=== PATIENT | male | born 1955 | race Caucasian/White ===

== ENCOUNTER 2017-11-05 21:37 | Observation (INO) ==
[2017-11-05 22:10] LABS: Basophils # 0.1 K/mcL (0.0-0.2); Basophils % 0.5 %; Eosinophils # 1.1 K/mcL (0.0-0.6); Eosinophils % 7.5 %; Hematocrit 41.8 % (37.5-50.1); Hemoglobin 13.4 g/dL (12.9-16.9); Immature Granulocytes % 0.3 % (0-4); Lymphocytes # 5.2 K/mcL (0.6-4.6); Lymphocytes % 34.5 %; Mean Corpuscular HGB Conc 32.1 g/dL (31.6-35.5); Mean Corpuscular Hemoglobin 27.6 pg (28.0-33.3); Mean Platelet Volume 10.2 fL (9.4-12.4); Monocytes # 1.1 K/mcL (0.0-1.3); Monocytes % 7.2 %; Neutrophils # 7.5 K/mcL (1.6-8.9); Platelet Count 450 K/mcL (140-400); Red Blood Count 4.86 M/mcL (4.19-5.50); Red Cell Distribution Width 15.3 % (11.5-14.5)
--- NOTE | 2017-11-05 22:10 | Emergency Department Note ---
Disposition Clinical Impression: Exertional dyspnea Chest pain Qualifiers: Chest pain type: unspecified Qualified Code(s): R07.9 - Chest pain, unspecified Disposition: Admitted As Inpatient Condition: Fair Time of Disposition: 00:42 Chest Pain HPI - General Chief Complaint: ED Chest Pain Stated Complaint: chest pain, SOB Time Seen by Provider: 11/05/17 21:46 Source: patient Limitations: no limitations Vital Signs Reviewed: Yes Nursing Notes Reviewed: Yes - History of Present Illness HPI Narrative: Patient is a 61-year-old male who presents to [facility] ED with a chief complaint of chest pain and difficulty breathing. States he has had worsening difficulty breathing with exertion for the last 2 weeks. He has also had chest pressure that comes on intermittently. Has a history of reflux but states this has not improved with his reflux medications. Denies any nausea , vomiting, fever or chills. Patient is on 2 L of oxygen when needed at home as well as CPAP machine at night which he is intermittently compliant with. No recent cough or cold. Past medical history significant for CAD with 3 stents. His last catheterization was several years ago and his last stress test was over 6 months ago. Pt complaint: chest pain Onset (ago): day(s) (2) Duration: intermittent Onset: during exertion Pain Location: substernal Severity: mild Severity scale (1-10): 0 Quality: heaviness Pain Radiation: none Improves with: nothing Worsens with: exertion Associated symptoms: Reports: dyspnea. Denies: nausea, vomiting, fever, cough Treatments prior to arrival chest pain: aspirin - Related Data Home Medications Medication Instructions Recorded Confirmed Atorvastatin [Lipitor] 80 mg PO DAILY 07/19/15 11/05/17 Clopidogrel [Plavix] 75 mg PO DAILY 07/19/15 11/05/17 Cyclobenzaprine [Flexeril] 10 mg PO TID PRN 07/19/15 11/05/17 Furosemide [Lasix] 40 mg PO DAILY 07/19/15 11/05/17 Glimepiride [Amaryl] 1 mg PO BID 07/19/15 11/05/17 Losartan Potassium [Cozaar] 50 mg PO DAILY 07/19/15 11/05/17 Metformin HCl [Glucophage] 1,000 mg PO BIDWM 07/19/15 11/05/17 NIFEdipine [Nifedical Xl] 30 mg PO DAILY 07/19/15 11/05/17 Nitroglycerin 0.4 mg SL Q5MIN 07/19/15 11/05/17 Potassium Chloride [Klor-Con 10 meq PO BID 07/19/15 11/05/17 Sprinkle] Pregabalin [Lyrica] 150 mg PO TID 07/19/15 11/05/17 Ferrous Sulfate [Iron] 325 mg PO DAILY 11/05/17 11/05/17 Lansoprazole [Prevacid] 30 mg PO DAILY 11/05/17 11/05/17 Lisinopril 2.5 mg PO DAILY 11/05/17 11/05/17 Allergies Allergy/AdvReac Type Severity Reaction Status Date / Time No Known Allergies Allergy Verified 07/28/17 09:11 All systems ED: reviewed and negative except as stated. Chest Pain PMH - Past Medical History Medical history: Reports: coronary artery disease, diabetes, GERD, hyperlipidemia, hypertension Surgical history: Reports: appendectomy, other Psychiatric history: Reports: no psych history - Social History Smoking Status: Former smoker Alcohol use: Reports: heavy Drug use: Reports: none Physical Exam - General Limitations: no limitations General appearance: alert, in no apparent distress - Head Head exam: atraumatic, normocephalic, normal inspection - Eye Eye exam: Present: normal appearance, EOMI - ENT ENT exam: normal exam, normal oropharynx, mucous membranes moist - Neck Neck exam: Present: normal inspection, full ROM, trachea midline - Chest Chest inspection: Present: normal inspection, symmetric chest wall rise, tenderness (sharp with palpation) - Respiratory Respiratory exam: Present: normal lung sounds bilaterally - Cardiovascular Cardiovascular exam: Present: regular rate, normal rhythm, normal heart sounds - Abdominal Exam Abdominal exam: Present: soft, Non-Tender. Absent: tenderness, distention, guarding, rebound, rigidity - Extremities Exam Extremities exam: Present: normal inspection, full ROM. Absent: tenderness, pedal edema - Back Exam Back exam: Present: normal inspection, full ROM. Absent: tenderness - Neurological Exam Neurological exam: Present: alert, oriented X3 - Psychiatric Psychiatric exam: Present: normal affect, normal mood - Skin Skin exam: Present: warm, dry, intact, normal color Course Course Narrative: Patient seen and examined. Chest pain and exertional dyspnea. Cardiopulmonary workup initiated. Patient already took a full dose aspirin today. Asymptomatic at this time. - Reevaluation(s) Reevaluation #1: Labwork, imaging unremarkable. I discussed my concern for possible unstable angina. Recommend admission for workup for ACS. I discussed with the hospitalist who has accepted patient for admission. Time: 00:41 Vital Signs Temperature 97.8 F 11/05/17 21:38 Pulse Rate 76 11/05/17 21:38 Respiratory Rate 18 11/05/17 21:38 Blood Pressure 135/85 11/05/17 21:38 O2 Sat by Pulse Oximetry 98 11/05/17 21:38 Temperature 97.6 F 11/06/17 01:12 Pulse Rate 67 11/06/17 01:12 Respiratory Rate 15 11/06/17 01:12 Blood Pressure 132/85 11/06/17 01:12 O2 Sat by Pulse Oximetry 98 11/06/17 01:12 Oxygen Delivery Oxygen Delivery Room Air Chest Pain - Medical Records Medical records reviewed: Yes I reviewed the patient's medical records. - Lab Data Lab results reviewed: Yes I reviewed the patient's lab results. Result diagrams: 11/05/17 21:52 11/05/17 21:52 Lab Results 11/05/17 11/05/17 11/05/17 Range/Units 21:52 21:52 21:57 WBC 14.9 H (4.3-11.1) K/mcL RBC 4.86 (4.19-5.50) M/mcL Hgb 13.4 (12.9-16.9) g/dL Hct 41.8 (37.5-50.1) % MCV 86.0 (83.0-100.0) fL MCH 27.6 L (28.0-33.3) pg MCHC 32.1 (31.6-35.5) g/dL RDW 15.3 H (11.5-14.5) % Plt Count 450 H (140-400) K/mcL MPV 10.2 (9.4-12.4) fL Immature Gran % 0.3 (0-4) % Seg Neutrophils % 50.0 % Lymphocytes % 34.5 % Monocytes % 7.2 % Eosinophils % 7.5 % Basophils % 0.5 % Neutrophils # 7.5 (1.6-8.9) K/mcL Lymphocytes # 5.2 H (0.6-4.6) K/mcL Monocytes # 1.1 (0.0-1.3) K/mcL Eosinophils # 1.1 H (0.0-0.6) K/mcL Basophils # 0.1 (0.0-0.2) K/mcL VBG pH (7.32-7.42) pH Units VBG pCO2 (41-51) mmHg VBG pO2 (25-50) mmHg VBG HCO3 (21-27) mEq/L Sodium 140 (136-145) mEq/L Potassium 4.1 (3.5-5.1) mEq/L Chloride 105 (98-107) mEq/L Carbon Dioxide 25 (23-29) mEq/L BUN 17 (8-23) mg/dL Creatinine 1.62 H (0.70-1.30) mg/dL Est GFR ( Amer) 53 L (> 60) Est GFR (Non-Af Amer) 43 L (> 60) BUN/Creatinine Ratio 10 (6-26) Glucose 133 H (70-105) mg/dL Calculated Osmolality 293 (280-300) Calcium 9.0 (8.6-10.3) mg/dL Troponin I < 0.03 (< 0.04) ng/mL B-Natriuretic Peptide 33 (Less than 100) pg/mL 11/05/17 Range/Units 22:47 WBC (4.3-11.1) K/mcL RBC (4.19-5.50) M/mcL Hgb (12.9-16.9) g/dL Hct (37.5-50.1) % MCV (83.0-100.0) fL MCH (28.0-33.3) pg MCHC (31.6-35.5) g/dL RDW (11.5-14.5) % Plt Count (140-400) K/mcL MPV (9.4-12.4) fL Immature Gran % (0-4) % Seg Neutrophils % % Lymphocytes % % Monocytes % % Eosinophils % % Basophils % % Neutrophils # (1.6-8.9) K/mcL Lymphocytes # (0.6-4.6) K/mcL Monocytes # (0.0-1.3) K/mcL Eosinophils # (0.0-0.6) K/mcL Basophils # (0.0-0.2) K/mcL VBG pH 7.35 (7.32-7.42) pH Units VBG pCO2 51 (41-51) mmHg VBG pO2 44 (25-50) mmHg VBG HCO3 28 H (21-27) mEq/L Sodium (136-145) mEq/L Potassium (3.5-5.1) mEq/L Chloride (98-107) mEq/L Carbon Dioxide (23-29) mEq/L BUN (8-23) mg/dL Creatinine (0.70-1.30) mg/dL Est GFR ( Amer) (> 60) Est GFR (Non-Af Amer) (> 60) BUN/Creatinine Ratio (6-26) Glucose (70-105) mg/dL Calculated Osmolality (280-300) Calcium (8.6-10.3) mg/dL Troponin I (< 0.04) ng/mL B-Natriuretic Peptide (Less than 100) pg/mL - Radiology Data Radiology results reviewed: Yes I reviewed the patient's radiology results. Chest X-Ray 11/05/17 21:57 IMPRESSION: Unchanged appearance of the chest without acute airspace disease identified. D/ / Agapito Pollack / Agapito Pollack Interpreting Provider: Agapito Pollack - EKG Data EKG attestation: Yes I reviewed and interpreted this EKG. EKG results narrative: EKG done at 2147 shows normal sinus rhythm with a rate of [address] elevation or depression. Normal axis. Poor wandering baseline EKG. Appears unchanged from prior EKG done 10/26/2014. Heart Score - Score History: Moderately Suspicious EKG: Normal Age: 45-65 Risk Factors: Equal/Greater than 3 risk factor or history of atherosclerotic disease Troponin: Less than normal limit HEART Score Total: 4
[2017-11-05 22:32] LABS: BUN/Creatinine Ratio 10 (6-26); Blood Urea Nitrogen 17 mg/dL (8-23); Carbon Dioxide 25 mEq/L (23-29); Chloride 105 mEq/L (98-107); Glucose 133 mg/dL (70-105); Osmolality,Calculated 293 (280-300); Potassium 4.1 mEq/L (3.5-5.1); Sodium 140 mEq/L (136-145); eGFR For African Americans 53 (> 60); eGFR For Non-African Americans 43 (> 60)
[2017-11-05 22:34] LABS: Troponin I < 0.03 ng/mL (< 0.04)
[2017-11-05 22:50] LABS: VBG HCO3 28 mEq/L (21-27); VBG PCO2 51 mmHg (41-51); VBG PH 7.35 pH Units (7.32-7.42); VBG PO2 44 mmHg (25-50)
--- NOTE | 2017-11-05 23:44 | Emergency Department Note ---
Disposition Clinical Impression: Exertional dyspnea Chest pain Qualifiers: Chest pain type: unspecified Qualified Code(s): R07.9 - Chest pain, unspecified Disposition: Admitted As Inpatient Condition: Fair General Adult HPI - General Chief complaint: ED Chest Pain Stated complaint: chest pain, SOB Time Seen by Provider: 11/05/17 21:46 Source: patient Limitations: no limitations - History of Present Illness Pain Scale: 0 - Related Data Home Medications Medication Instructions Recorded Confirmed Atorvastatin [Lipitor] 80 mg PO DAILY 07/19/15 11/05/17 Clopidogrel [Plavix] 75 mg PO DAILY 07/19/15 11/05/17 Cyclobenzaprine [Flexeril] 10 mg PO TID PRN 07/19/15 11/05/17 Furosemide [Lasix] 40 mg PO DAILY 07/19/15 11/05/17 Glimepiride [Amaryl] 1 mg PO BID 07/19/15 11/05/17 Losartan Potassium [Cozaar] 50 mg PO DAILY 07/19/15 11/05/17 Metformin HCl [Glucophage] 1,000 mg PO BIDWM 07/19/15 11/05/17 NIFEdipine [Nifedical Xl] 30 mg PO DAILY 07/19/15 11/05/17 Nitroglycerin 0.4 mg SL Q5MIN 07/19/15 11/05/17 Potassium Chloride [Klor-Con 10 meq PO BID 07/19/15 11/05/17 Sprinkle] Pregabalin [Lyrica] 150 mg PO TID 07/19/15 11/05/17 Ferrous Sulfate [Iron] 325 mg PO DAILY 11/05/17 11/05/17 Lansoprazole [Prevacid] 30 mg PO DAILY 11/05/17 11/05/17 Lisinopril 2.5 mg PO DAILY 11/05/17 11/05/17 Allergies Allergy/AdvReac Type Severity Reaction Status Date / Time No Known Allergies Allergy Verified 07/28/17 09:11 Past Medical History - Past Medical History Medical history: Reports: coronary artery disease, diabetes, GERD, hyperlipidemia, hypertension Surgical history: Reports: appendectomy, other Psychiatric history: Reports: no psych history - Social History Smoking Status: Former smoker Smokeless Tobacco Status: No Alcohol use: Reports: heavy Drug use: Reports: none Physical Exam - General Limitations: no limitations General appearance: alert, in no apparent distress Course Vital Signs Temperature 97.8 F 11/05/17 21:38 Pulse Rate 76 11/05/17 21:38 Respiratory Rate 18 11/05/17 21:38 Blood Pressure 135/85 11/05/17 21:38 O2 Sat by Pulse Oximetry 98 11/05/17 21:38 Temperature 97.6 F 11/06/17 01:12 Pulse Rate 67 11/06/17 01:12 Respiratory Rate 15 11/06/17 01:12 Blood Pressure 132/85 11/06/17 01:12 O2 Sat by Pulse Oximetry 98 11/06/17 01:12 Oxygen Delivery Oxygen Delivery Room Air Medical Decision Making - Lab Data Result diagrams: 11/05/17 21:52 11/05/17 21:52 Lab Results 11/05/17 11/05/17 11/05/17 Range/Units 21:52 21:52 21:57 WBC 14.9 H (4.3-11.1) K/mcL RBC 4.86 (4.19-5.50) M/mcL Hgb 13.4 (12.9-16.9) g/dL Hct 41.8 (37.5-50.1) % MCV 86.0 (83.0-100.0) fL MCH 27.6 L (28.0-33.3) pg MCHC 32.1 (31.6-35.5) g/dL RDW 15.3 H (11.5-14.5) % Plt Count 450 H (140-400) K/mcL MPV 10.2 (9.4-12.4) fL Immature Gran % 0.3 (0-4) % Seg Neutrophils % 50.0 % Lymphocytes % 34.5 % Monocytes % 7.2 % Eosinophils % 7.5 % Basophils % 0.5 % Neutrophils # 7.5 (1.6-8.9) K/mcL Lymphocytes # 5.2 H (0.6-4.6) K/mcL Monocytes # 1.1 (0.0-1.3) K/mcL Eosinophils # 1.1 H (0.0-0.6) K/mcL Basophils # 0.1 (0.0-0.2) K/mcL VBG pH (7.32-7.42) pH Units VBG pCO2 (41-51) mmHg VBG pO2 (25-50) mmHg VBG HCO3 (21-27) mEq/L Sodium 140 (136-145) mEq/L Potassium 4.1 (3.5-5.1) mEq/L Chloride 105 (98-107) mEq/L Carbon Dioxide 25 (23-29) mEq/L BUN 17 (8-23) mg/dL Creatinine 1.62 H (0.70-1.30) mg/dL Est GFR ( Amer) 53 L (> 60) Est GFR (Non-Af Amer) 43 L (> 60) BUN/Creatinine Ratio 10 (6-26) Glucose 133 H (70-105) mg/dL Calculated Osmolality 293 (280-300) Calcium 9.0 (8.6-10.3) mg/dL Troponin I < 0.03 (< 0.04) ng/mL B-Natriuretic Peptide 33 (Less than 100) pg/mL 11/05/17 Range/Units 22:47 WBC (4.3-11.1) K/mcL RBC (4.19-5.50) M/mcL Hgb (12.9-16.9) g/dL Hct (37.5-50.1) % MCV (83.0-100.0) fL MCH (28.0-33.3) pg MCHC (31.6-35.5) g/dL RDW (11.5-14.5) % Plt Count (140-400) K/mcL MPV (9.4-12.4) fL Immature Gran % (0-4) % Seg Neutrophils % % Lymphocytes % % Monocytes % % Eosinophils % % Basophils % % Neutrophils # (1.6-8.9) K/mcL Lymphocytes # (0.6-4.6) K/mcL Monocytes # (0.0-1.3) K/mcL Eosinophils # (0.0-0.6) K/mcL Basophils # (0.0-0.2) K/mcL VBG pH 7.35 (7.32-7.42) pH Units VBG pCO2 51 (41-51) mmHg VBG pO2 44 (25-50) mmHg VBG HCO3 28 H (21-27) mEq/L Sodium (136-145) mEq/L Potassium (3.5-5.1) mEq/L Chloride (98-107) mEq/L Carbon Dioxide (23-29) mEq/L BUN (8-23) mg/dL Creatinine (0.70-1.30) mg/dL Est GFR ( Amer) (> 60) Est GFR (Non-Af Amer) (> 60) BUN/Creatinine Ratio (6-26) Glucose (70-105) mg/dL Calculated Osmolality (280-300) Calcium (8.6-10.3) mg/dL Troponin I (< 0.04) ng/mL B-Natriuretic Peptide (Less than 100) pg/mL Critical Care Time Critical Care Time: No Attestation Statement - Attestation Attestation: I examined this patient and my medical decision-making was reviewed with the Resident Physician. I agree with the documented findings, disposition and treatment plan as described except to the extent set forth below. Patient presents to the ED with a chief complaint of shortness of breath. Patient describes dyspnea on exertion for a couple months is worsened over the past couple weeks. He has had some intermittent chest pressures as well a described as a soreness. Patient states he has bad GERD but this does not seem to be relieved with his typical GERD medications. His extensive cardiac medical history as well including multiple stents. Patient is in no distress on examination. He has a mild tenderness over the sternum. Lungs clear. Plan. Cardiac workup. Likely observation.
[2017-11-06] MEDS ORDERED: GI Cocktail 40 ML EACH PO ONE
[2017-11-06] MEDS ORDERED: Acetaminophen 325 MG TABLET PO PRN (05:01)
[2017-11-06] MEDS ORDERED: Naloxone 0.4 MG/ML INJ IVP PRN (05:01)
[2017-11-06] MEDS ORDERED: *HR* Dextrose 50 % in Water (Syg) 50 ML SYRINGE IVP PRN (05:06)
[2017-11-06] MEDS ORDERED: Dextrose Gel 15 GM/37.5 ML TUBE PO PRN ×2 (05:06)
[2017-11-06] MEDS ORDERED: D5% in Water 1,000 ML IVC PRN (05:06)
[2017-11-06 05:38] LABS: Basophils # 0.1 K/mcL (0.0-0.2); Basophils % 0.6 %; Eosinophils % 6.9 %; Hematocrit 38.6 % (37.5-50.1); Hemoglobin 12.4 g/dL (12.9-16.9); Immature Granulocytes % 0.5 % (0-4); Immature Platelets 4.4 % (1.1-6.1); Lymphocytes # 4.5 K/mcL (0.6-4.6); Lymphocytes % 31.9 %; Mean Corpuscular HGB Conc 32.1 g/dL (31.6-35.5); Mean Corpuscular Hemoglobin 27.6 pg (28.0-33.3); Mean Platelet Volume 10.2 fL (9.4-12.4); Monocytes # 1.2 K/mcL (0.0-1.3); Monocytes % 8.3 %; Neutrophils # 7.3 K/mcL (1.6-8.9); Platelet Count 433 K/mcL (140-400); Red Blood Count 4.49 M/mcL (4.19-5.50); Red Cell Distribution Width 15.2 % (11.5-14.5); Segmented Neutrophils % 51.8 %
[2017-11-06] MEDS: Insulin LISPRO 300 UNITS/3 ML VIAL SQ SCH ×3 (05:40→18:33)
[2017-11-06 05:59] LABS: Chol/HDL Ratio 4.1 (0-4.9)
[2017-11-06] MEDS ORDERED: Regadenoson 0.4 MG/5 ML SYRINGE IVP ONE (05:59)
[2017-11-06 06:01] LABS: BUN/Creatinine Ratio 12 (6-26); Blood Urea Nitrogen 18 mg/dL (8-23); Calcium 8.9 mg/dL (8.6-10.3); Carbon Dioxide 27 mEq/L (23-29); Chloride 107 mEq/L (98-107); Glucose 81 mg/dL (70-105); Osmolality,Calculated 295 (280-300); Sodium 142 mEq/L (136-145); eGFR For African Americans 57 (> 60); eGFR For Non-African Americans 47 (> 60)
[2017-11-06 06:02] LABS: Troponin I < 0.03 ng/mL (< 0.04)
--- NOTE | 2017-11-06 06:35 | Internal Med History&Physical ---
Date of Encounter: 11/06/17 Time of Encounter: 04:15 Internal Medicine - H&P: HPI Chief complaint: Chest pain Admitted From: Emergency Dept Plans for Post Hospital Care: Home History of present illness: Mr. Wild is a 61 year old male with history of CAD, diabetes, obstructive sleep apnea, who presents with complaints of chest pain. Patient reports a long -standing history of exertional dyspnea for the last several months up to a yea. however, he reports never having sought medical opinion on this although he does have a primary care provider. He started having retrosternal chest pains intermittently for the last 3 days, not associated with activity, 8/10 in intensity, dull aching pain, nonradiating , no aggravating or relieving factors. He denies associated diaphoresis, dizziness or syncope. Past Med Surg Social Fam HX - Past Medical History Source: patient Medical history: coronary artery disease, diabetes, GERD, hyperlipidemia, hypertension Psychiatric history: no psych history - Past Surgical History Surgical History: appendectomy, splenectomy, other - Social History Smoking Status: Former smoker Smokeless Tobacco Status: No Alcohol use: heavy, recent Drug use: none Occupational status: disabled Current living situation: Home, With Family Activity Level: Independent ambulation Recent Out of Country Travel Within the Last 8 Weeks: No Exposure or Possible Exposure to Illness During Travel: No - Family History Mother Living Status: Age at : 79 Cause of : natural causes Hx Family Cancer: Yes (breast ca) Father Living Status: Age at : 79 Hx Family Cardiac Disorders: Yes (mi) Internal Medicine - H&P: Meds Atorvastatin [Lipitor] 80 mg PO DAILY 07/19/15 [History] Clopidogrel [Plavix] 75 mg PO DAILY 07/19/15 [History] Cyclobenzaprine [Flexeril] 10 mg PO TID PRN 07/19/15 [History] Furosemide [Lasix] 40 mg PO DAILY 07/19/15 [History] Glimepiride [Amaryl] 1 mg PO BID 07/19/15 [History] Losartan Potassium [Cozaar] 50 mg PO DAILY 07/19/15 [History] Metformin HCl [Glucophage] 1,000 mg PO BIDWM 07/19/15 [History] NIFEdipine [Nifedical Xl] 30 mg PO DAILY 07/19/15 [History] Nitroglycerin 0.4 mg SL Q5MIN 07/19/15 [History] Potassium Chloride [Klor-Con Sprinkle] 10 meq PO BID 07/19/15 [History] Pregabalin [Lyrica] 150 mg PO TID 07/19/15 [History] Ferrous Sulfate [Iron] 325 mg PO DAILY 11/05/17 [History] Lansoprazole [Prevacid] 30 mg PO DAILY 11/05/17 [History] Lisinopril 2.5 mg PO DAILY 11/05/17 [History] 3 Allergy/AdvReac Type Severity Reaction Status Date / Time No Known Allergies Allergy Verified 07/28/17 09:11 All Systems PM: A 10-system review of systems was performed and is negative for pertinent findings except as documented above in the HPI. - Constitutional Constitutional: no chills, no fever(s), no night sweats - EENT Eyes: no change in vision, no discharge, no pain, no photophobia Ears: no ear discharge, no ear pain, no tinnitus Nose, mouth and throat: no dysphagia, no nasal discharge, no neck pain, no sore throat - Cardiovascular Cardiovascular ROS IM: chest pain, dyspnea, dyspnea on exertion - Respiratory Respiratory: no cough, no dyspnea, no wheezing, no excessive phlegm production - Gastrointestinal Gastrointestinal: no abdominal pain, no diarrhea, no hematemesis, no hematochezia, no melena, no nausea, no vomiting - Musculoskeletal Musculoskeletal ROS IM: no numbness, no tingling - Integumentary Integumentary IM: no rash, no unusual bruising - Neurological Neurological ROS: no confusion, no convulsions, no focal weakness, no numbness, no tingling, no tremor(s) - Hematologic/Lymphatic Hematologic/Lymphatic: no easy bruising - Constitutional Vitals: Temp Pulse Resp BP Pulse Ox 97.6 F 67 15 132/85 98 11/06/17 01:12 11/06/17 01:12 11/06/17 01:12 11/06/17 01:12 11/06/17 01:12 General appearance: Present: A&O X 3, obese, answers questions appropriately - Respiratory Respiratory exam: Present: CTAB. Absent: accessory muscle use, rales, rhonchi, wheezes - Cardiovascular Cardiovascular exam: Present: RRR, +S1, +S2. Absent: diastolic murmur, gallop, rubs, systolic murmur - GI/Abdominal GI/Abdominal exam: Present: normal bowel sounds, soft (Obese), no peritoneal signs. Absent: distended, tenderness - Extremities Exam Extremities exam: Present: full ROM, warm, radial pulses palpable and symmetrical. Absent: calf tenderness, cyanotic, pedal edema - Neurological Exam Neurological exam: Present: CN II-XII intact, oriented X3, no focal deficits. Absent: pronater drift, facial droop, speech deficit - Skin Skin exam: Present: dry, intact Internal Med - H&P Results - Labs CBC & Chem 7: 11/06/17 05:23 11/06/17 05:23 Labs: Short CBC 11/06/17 Range/Units 05:23 WBC 14.2 H (4.3-11.1) K/mcL Hgb 12.4 L (12.9-16.9) g/dL Hct 38.6 (37.5-50.1) % Plt Count 433 H (140-400) K/mcL Neutrophils # 7.3 (1.6-8.9) K/mcL BMP 11/06/17 05:23 Sodium 142 Potassium 4.0 Chloride 107 Carbon Dioxide 27 BUN 18 Creatinine 1.51 H Glucose 81 Calcium 8.9 Cardiac Enzymes 11/06/17 Range/Units 05:23 Troponin I < 0.03 (< 0.04) ng/mL - EKG Data EKG shows normal: sinus rhythm Rate: normal - Assessment and plan (1) Chest pain Current Visit: Yes Status: Acute Assessment and plan: Chest pain and anginal equivalent, exertional dyspnea. To consider ACS. EKG shows no acute ischemic changes. Continue telemetry monitoring, serial troponins. Continue Plavix and statin. Nuclear stress test in a.m. check lipid profile. Qualifiers: Chest pain type: unspecified Qualified Code(s): R07.9 - Chest pain, unspecified (2) CAD (coronary artery disease) Current Visit: Yes Status: Chronic Assessment and plan: Continue home meds. Qualifiers: Coronary Disease-Associated Artery/Lesion type: [place] artery [place] vs. transplanted heart: [place] heart Associated angina: without angina Qualified Code(s): I25.10 - Atherosclerotic heart disease of [place] coronary artery without angina pectoris (3) Obstructive sleep apnea Current Visit: Yes Status: Chronic Assessment and plan: noncompliant with nocturnal CPAP. (4) Essential hypertension Current Visit: Yes Status: Chronic (5) Diabetes mellitus Current Visit: Yes Status: Chronic Assessment and plan: Blood sugars noted to be well controlled. Accu-Chek blood glucose monitoring with sliding scale insulin. Diabetic diet. Qualifiers: Diabetes mellitus type: type 2 Diabetes mellitus jail insulin use: without jail use Diabetes mellitus complication status: with kidney complications Diabetes mellitus complication detail: with chronic kidney disease Chronic kidney disease stage: stage 3 (moderate) Qualified Code(s): E11.22 - Type 2 diabetes mellitus with diabetic chronic kidney disease; N18.3 - Chronic kidney disease, stage 3 (moderate); N18.3 - Chronic kidney disease, stage 3 (moderate) (6) Hyperlipidemia Current Visit: Yes Status: Chronic Qualifiers: Hyperlipidemia type: unspecified Qualified Code(s): E78.5 - Hyperlipidemia , unspecified (7) CKD (chronic kidney disease), stage III Current Visit: Yes Status: Suspected Assessment and plan: Patient has no known history of chronic kidney disease. Serum creatinine noted to be slightly high at 1.6 today. Hold diuretic, ARB and monitor serum creatinine closely. - Time Spent With Patient Total time spent is greater than 50% in coordination of care (as documented) at patient's floor/unit and/or counseling patient:
[2017-11-06] MEDS ORDERED: Furosemide 40 MG TABLET PO SCH (09:00)
[2017-11-06] MEDS ORDERED: NIFEdipine XL (24 HR) 30 MG TAB.ER.24 PO SCH (09:00)
[2017-11-06] MEDS: Pregabalin 75 MG CAPSULE PO SCH ×3 (11:30→20:13)
[2017-11-06] MEDS ORDERED: *HR* LORazepam 2 MG/ML VIAL IVP PRN (13:24)
[2017-11-06] MEDS: Thiamine (B-1) 100 MG TABLET PO SCH (14:52)
[2017-11-06] MEDS: Folic Acid 1 MG TABLET PO SCH (14:52)
[2017-11-06] MEDS: Vitamin B Complex/Vit C/Vit E 1 EACH TABLET PO SCH (14:52)
--- NOTE | 2017-11-06 17:56 | Event Note ---
Date of Encounter: 11/06/17 Time of Encounter: 17:54 Mr Junito is currently in observation for chest pain and dyspnea. He is also having positional dizziness. Exam Alert Comfortable Mucus membranes dry Heart reg Lungs clear Plan CT chest Echo Carotid duplex Adjust meds - BP low when standing.
[2017-11-07] MEDS: Insulin LISPRO 300 UNITS/3 ML VIAL SQ SCH ×2 (00:22→06:15)
[2017-11-07] MEDS ORDERED: Dextrose Gel 15 GM/37.5 ML TUBE PO PRN ×2 (08:49)
[2017-11-07] MEDS ORDERED: D5% in Water 1,000 ML IVC PRN (08:49)
[2017-11-07] MEDS ORDERED: *HR* Dextrose 50 % in Water (Syg) 50 ML SYRINGE IVP PRN (08:49)
[2017-11-07] MEDS ORDERED: Furosemide 20 MG TABLET PO SCH (09:00)
[2017-11-07] MEDS ORDERED: NIFEdipine XL (24 HR) 30 MG TAB.ER.24 PO SCH (09:00)
[2017-11-07] MEDS: Vitamin B Complex/Vit C/Vit E 1 EACH TABLET PO SCH (09:04)
[2017-11-07] MEDS: Folic Acid 1 MG TABLET PO SCH (09:05)
[2017-11-07] MEDS: Pregabalin 75 MG CAPSULE PO SCH ×2 (09:06→14:56)
[2017-11-07] MEDS: Thiamine (B-1) 100 MG TABLET PO SCH (09:06)
[2017-11-07] MEDS ORDERED: Insulin LISPRO 300 UNITS/3 ML VIAL SQ SCH ×2 (11:30→21:00)
[2017-11-07 11:36] VITALS: BP 112/70
--- NOTE | 2017-11-07 13:42 | Discharge Summary ---
- NOTES TO OUTPATIENT PROVIDER Notes to Outpatient Provider: Mr Wild was in observation for chest pain and dyspnea. He had neg nuclear stress, CT chest, carotids, echo. Meds adjusted due to positional dizziness. Needs further cardiac follow up. Orders not resulted at time of discharge: Pending orders 11/06/17 05:35 NM michael perf SPECT multi [NM] Routine Date of Encounter: 11/07/17 Time of Encounter: 13:39 - Discharge Diagnosis (1) Chest pain Priority: Primary Status: Suspected Qualifiers: Chest pain type: chest pain due to myocardial ischemia Ischemic chest pain type: stable angina pectoris Qualified Code(s): I20.8 - Other forms of angina pectoris (2) Orthostatic dizziness Priority: Secondary Status: Acute (3) CAD (coronary artery disease) Priority: Secondary Status: Chronic Qualifiers: Coronary Disease-Associated Artery/Lesion type: [place] artery [place] vs. transplanted heart: [place] heart Associated angina: without angina Qualified Code(s): I25.10 - Atherosclerotic heart disease of [place] coronary artery without angina pectoris (4) Obstructive sleep apnea Priority: Secondary Status: Chronic (5) Essential hypertension Priority: Secondary Status: Chronic (6) Diabetes mellitus Priority: Secondary Status: Chronic Qualifiers: Diabetes mellitus type: type 2 Diabetes mellitus intermediate insulin use: without intermediate use Diabetes mellitus complication status: with kidney complications Diabetes mellitus complication detail: with chronic kidney disease Chronic kidney disease stage: stage 3 (moderate) Qualified Code(s): E11.22 - Type 2 diabetes mellitus with diabetic chronic kidney disease; N18.3 - Chronic kidney disease, stage 3 (moderate); N18.3 - Chronic kidney disease, stage 3 (moderate) (7) Hyperlipidemia Priority: Secondary Status: Chronic Qualifiers: Hyperlipidemia type: mixed hyperlipidemia Qualified Code(s): E78.2 - Mixed hyperlipidemia (8) CKD (chronic kidney disease), stage III Priority: Secondary Status: Suspected Hospital course: Mr. Wild is a 61 year old male with hx of DM, HTN and CAD presented to ED with chest discomfort. He has been having exertional dyspnea for a year but worse recently. Developed chest tightness recently as well. He was placed in observation for further work up. Mr Wild was placed in observation on med tele. He had nuclear stress test which was negative for ischemia. He relayed issues with positional dizziness and his standing SBP was under 100 (though no orthostatic drop). His med timing was adjusted and his Lasix dose was decreased. He had CT of chest which was negative. Due to positional issues carotid duplex done and was normal. Echo done and EF good. He had 6 min walk test and did not require oxygen. Today he is afebrile. Overall his BP has increased but not too high. He will be discharged home with outpatient follow up. I instructed him to take BP meds at night and half Lasix dose in AM. I discussed with him he should be wearing his cpap at night and see feeder tender. Also he may benefit from neuro for dizziness if persists as he has had hx of head trauma. He was advised alcohol cessation. Discharge discussed with: patient, family, nurse - Time Spent with Patient Total time spent providing and/or coordinating discharge services: 39min - Discharge Medications Home Medications: Atorvastatin [Lipitor] 80 mg PO DAILY 07/19/15 [History] Clopidogrel [Plavix] 75 mg PO DAILY 07/19/15 [History] Cyclobenzaprine [Flexeril] 10 mg PO TID PRN 07/19/15 [History] Glimepiride [Amaryl] 1 mg PO BID 07/19/15 [History] Metformin HCl [Glucophage] 1,000 mg PO BIDWM 07/19/15 [History] Nitroglycerin 0.4 mg SL Q5MIN 07/19/15 [History] Potassium Chloride [Klor-Con Sprinkle] 10 meq PO BID 07/19/15 [History] Pregabalin [Lyrica] 150 mg PO TID 07/19/15 [History] Ferrous Sulfate [Iron] 325 mg PO DAILY 11/05/17 [History] Lansoprazole [Prevacid] 30 mg PO DAILY 11/05/17 [History] Furosemide [Lasix] 20 mg PO DAILY tablet 11/07/17 [Rx] Lisinopril 2.5 mg PO DAILY #0 11/07/17 [Rx] NIFEdipine XL (24 HR) [Procardia XL] 30 mg PO DAILY tab.er.24 11/07/17 [Rx] Allergies/Adverse Reactions: 3 Allergy/AdvReac Type Severity Reaction Status Date / Time No Known Allergies Allergy Verified 07/28/17 09:11 Date of admission: 11/06/17 04:10 Primary care physician: Osito Bolden MD Consults: 11/06/17 13:24 Consult to Teletypewriter Operator [CONS] Routine Reason for SW Consult: reported heavy alcohol abuse Discharging clinician: Alex Rm Anticipated date of discharge: 11/07/17 - Constitutional Vitals: Temp Pulse Resp BP Pulse Ox 97.6 F 95 17 112/70 97 11/07/17 11:35 11/07/17 11:35 11/07/17 11:35 11/07/17 11:35 11/07/17 11:35 General appearance: Present: A&O X 3, obese, answers questions appropriately - Head Head exam: Present: normocephalic - Eye Eye exam: Present: conjuntiva pink - ENT ENT exam: Present: mucous membranes dry - Respiratory Respiratory exam: Present: CTAB. Absent: rales, rhonchi, wheezes - Cardiovascular Cardiovascular exam: Present: RRR. Absent: tachycardia - GI/Abdominal GI/Abdominal exam: Present: soft. Absent: tenderness - Extremities Exam Extremities exam: Present: warm. Absent: tenderness - Neurological Exam Neurological exam: Present: alert, oriented X3, no focal deficits - Skin Skin exam: Present: dry, warm - Patient Status Disposition: Home, Self-Care Condition: Good Functional capacity at discharge: independent ambulation Overall status at discharge: patient is progressing back to baseline - Discharge Instructions Instructions: Chest Pain (DC) Follow Up With: Osito Bolden MD [Primary Care Provider] - - Diet and Activity Activity: increase activity as tolerated Diet: advance to your usual diet
[2017-11-07] MEDS ORDERED: Famotidine 20 MG TABLET PO SCH (13:45)
--- NOTE | 2017-11-09 15:44 | Electrocardiograph Report ---
[address] [address] Test Date: 2017-11-05 Pat Name: Anuj Wild Department: 102 Room: [facility] Gender: M [place] Drawer: : [id number] Requested By: Tran Haines Order Number: [id number] Reading MD: Efrain Herrera Measurements Intervals Commerce Rate: 79 P: 49 NV: 152 QRS: 18 QRSD: 89 T: 70 QT: 376 QTc: 410 Interpretive Statements SINUS RHYTHM Electronically Signed On 11-09-2017 15:43:21 EDT by Efrain Herrera
== END 2017-11-07 16:08 | disposition home or self-care (01) ==
LOC: EMEROO 21:37 → 3NENU 21:37 → UNDODEPER 11-06 01:00 → SUATTDRO 11-06 04:10
PROVIDERS: ADMIT Internal Medicine; ATTEND Internal Medicine